=== PATIENT | female | born 1985 | race Caucasian/White ===

== ENCOUNTER 2017-01-30 07:55 | Emergency (ER) | payer OTHER ==
--- NOTE | 2017-01-31 13:22 | ER ---
ADMIT: 01/30/2017 RM/LOC: ER [facility] MR#: [id number] [address] [facility] [address] [place] [id number] NIRU JUAREZ [address] [place] [id number] Emergency Room Report SEX: F AGE: 32 : 1985 DATE: 01/30/2017 HISTORY OF PRESENT ILLNESS: Niru is a 32-year-old female, who complains of right lower abdominal pain as well as right flank pain. She is in tears that she says this is a tearing pain, and it has been going on for 1 day. She is concerned it could be her appendix, but she comes in without fever. No nausea. No vomiting. REVIEW OF SYSTEMS: Otherwise negative. PAST MEDICAL HISTORY: Hypertension. She has had abdominal hernias and kidney stones. PAST SURGICAL HISTORY: Cholecystectomy, tonsillectomy, and sinus surgery. MEDICATIONS: She takes blood pressure medication in the form of nifedipine and multivitamin. ALLERGIES: SHE IS ALLERGIC TO LABETALOL, BIAXIN, AND LATEX. PHYSICAL EXAMINATION: There is some guarding and tenderness. Decreased bowel sounds, but no psoas or Rovsing sign. Positive CVA tenderness on the right flank. DIAGNOSTIC DATA: CBC within normal limits. Chemistry; 105 glucose. Urine test is negative. UA is negative. CT abdomen shows solitary loop of fluid-filled small bowel, which may be an ileus, but also there is constipation. CLINICAL IMPRESSION: 1. Abdominal pain. 2. Constipation. Instructions given to the patient. MiraLAX or magnesium citrate. Follow up with Collins. BARBARA Rodriguez / Octavio Farooq MD / alma JOB #: [id number] CC: Octavio Farooq MD, Attending Physician Beto Collins MD, Family Physician
== END 2017-01-30 10:00 | disposition home or self-care (01) ==
LOC: ER 07:55
DX: K59.00 Constipation, unspecified (principal); I10 Essential (primary) hypertension; Z87.442 Personal history of urinary calculi; Z91.040 Latex allergy status; Z88.8 Allergy status to other drugs, medicaments and biological substances